=== PATIENT | male | born 1950 | race Caucasian/White ===

== ENCOUNTER 2016-08-23 10:26 | Emergency (ER) | payer OTHER ==
[2016-08-23 10:33] VITALS: BP 115/54; BMI 23.1
--- NOTE | 2016-08-23 11:29 | DR.GENAD ---
HPI - PCP Primary Care Physician: [facility] - Complaint/Symptoms Chief Complaint Doctors Comments: Patient with liver cancer was seen four days ago by his doctors ID. He presents with c/o not being able to sleep. He denies vomitng, fever or diarrhea. Chief Complaint:: PATIENT LOSSED 20 LBS IN ONE MONTH, WEAKNESS, LEFT SIDE WHEN HE LAYS ON IT HAS A SHARP PAIN SINCE SUNDAY. WAS DISCHARGED ON SUNDAY FROM HIS CHEMO SESSION. ID TOLD HIM TO COME TO THE ER. - Source History Provided: Patient - Mode of Arrival Mode of Arrival: Ambulatory - Timing Onset of Chief Complaint: 08/19/16 PMH - PMH Past Medical History: Yes Past Medical History: Hypertension Past Medical History Comment: LIVER CANCER, HEP C Past Surgical History: Yes Surgical History: CABG/Valve Surgery, Cholecystectomy - Family History History of Family Medical Conditions: No - Social History Does patient currently use any type of tobacco product: No Have you used tobacco products in the last 12 months: No Type of Tobacco Use: None Does any household member use tobacco: No Alcohol Use: None Do you use any recreational Drugs:: No Lives With: Family - infectious screening In the last 2 months have you had wt loss of >10#?: NO Have you had fever, night sweats or hemotysis?: No Have you traveled outside the country in the last 6 months?: No Isolation: Standard ROS - Review of Systems Eyes: No Symptoms Reported ENTM: No Symptoms Reported Respiratoy: No Symptoms Reported Cardiovascular: No Symptoms Reported Gastrointestinal/Abdominal: No Symptoms Reported Genitourinary: No Symptoms Reported Neurological: No Symptoms Reported Musculoskeletal: No Symptoms Reported Integumentary: No Symptoms Reported Hematologic/Lymphatic: No Symptoms Reported Endocrine: No Symptoms Reported Psychiatric: No Symptoms Reported All Other Systems: Reviewed and Negative PE - Vital Signs Vitals: Temperature 98.4 F Pulse Rate 67 Respiratory Rate 20 Blood Pressure 115/54 O2 Sat by Pulse Oximetry 97 - General Limitations: No Limitations General Appearance: Alert, In No Apparent Distress - Head Head Exam: Normal Inspection, Atraumatic - Eyes Eye exam: Normal Appearance, PERRL, EOMI - ENT ENT Exam: Normal Exam External Ear Exam: Normal External Inspection TM/Canal Exam: Bilateral Normal Nose Exam: Normal Nose Exam Mouth Exam: Normal Inspection Throat Exam: Normal Inspection - Neck Neck Exam: Normal Inspection - Chest Chest Inspection: Normal Inspection - Respiratory Respiratory Exam: Normal Lung Sounds Bilat Respiratory Exam: Bilateral Clear to Auscultation - Cardiovascular Cardiovascular Exam: Regular Rate, Normal Rhythm - Abdominal Exam Abdominal Exam: Normal Inspection, Normal Bowel Sounds Abdominal Tenderness: negative: RUQ, RLQ, LUQ, LLQ, Epigastrium, Suprapubic, Diffuse, Mild, Moderate, Severe, Other - Extremities Extremities Exam: Normal Inspection - Back Back Exam: Normal Inspection - Neurologic Neurological Exam: Alert, Oriented X3, CN II-XII Intact - Psychiatric Psychiatric Exam: Normal Affect - Skin Skin Exam: Warm, Dry, Intact - Diagnosis Discharge Problem: Insomnia Qualifiers: Insomnia type: unspecified Qualified Code(s): G47.00 - Insomnia, unspecified - Discharge Plan Condition: Stable - Follow ups/Referrals Follow ups/Referrals: Misc [Primary Care Provider] - 3 days - Instructions
== END 2016-08-23 11:40 | disposition home or self-care (01) ==
LOC: ER 10:51
DX: G47.09 Other insomnia (principal)
CPT/HCPCS: 99281; 99282

== ENCOUNTER 2019-01-29 15:02 | Observation (INO) ==
--- NOTE | 2019-01-29 16:01 | DR.CP ---
HPI Time Seen Time Seen by Provider: 01/29/19 15:57 PCP Primary Care Physician: BLAKE HPI Comment HPI Comment: PATIENT IS 68YR OLD MALE IN THE ER WITH SUDDEN ONSET OF SHARP PRECORDIAL CHEST PAIN THAT WAS 10/10 AND RADIATES TO LEFT ARM BUT RESOLVE CURRENTLY. PATIENT TOOK ASA BEFORE COMING. PAIN ASSOCIATED WITH SOB FARIBA.D WEAKNESS. NO FEVER OR COUGH OR DYSURIA. HISTORY CAD AND HTN. Complaint Chief Complaint Doctor Comments: CHEST PAIN. Chief Complaint:: PT CALLED EMS C/O CP BUT WHEN EMS ARRIVED PT HAD TAKEN ASPIRIN AND STATED HE FELT BETTER. PT AGREED TO COME TO ER FOR EVALUATION. Reviewed Nurses Notes Review: Yes Source History Provided: Patient Mode of Arrival Mode of Arrival: Ambulatory Timing Onset of Chief Complaint: 01/29/19 Came on: Suddenly Pain: Resolved Duration Duration: Since Onset Duration: Hours Location Location of Chest Pain: Left and Chest Chest Pain Radiation Location: Left Arm Context Onset: At rest and With light exertion Cardiac Risk Factors: HTN PE Risk Factors: None History of: None Prehospital Care: ASA Quality Quality: Sharp Severity Severity: Severe Modifying Factors Worsens: Exertion Impoves: Rest Associated Signs and Symptoms Associated Signs and Symptoms: Shortness of Breath Other History Other History: CAD, HTN. PMH PMH Past Medical History: Yes Past Medical History: Hypertension Past Medical History Comment: LIVER CANCER X PAST 5 YEARS Past Surgical History: Yes Surgical History: CABG/Valve Surgery Family History History of Family Medical Conditions: No Social History Does patient currently use any type of tobacco product: No Have you used tobacco products in the last 12 months: No Type of Tobacco Use: None Does any household member use tobacco: No Alcohol Use: None Do you use any recreational Drugs:: No Lives With: Spouse Lives Where: Home infectious screening In the last 2 months have you had wt loss of >10#?: NO Have you had fever, night sweats or hemotysis?: No Have you traveled outside the country in the last 6 months?: No Isolation: Standard ROS Review of Systems Constitutional: See HPI, Weakness and Fatigue; negative Fever Eyes: No Symptoms Reported and See HPI; negative Eye Pain and Blurred Vision ENTM: No Symptoms Reported and See HPI; negative Ear Pain, Nose Discharge, Nose Congestion and Throat Pain Respiratoy: See HPI and Short of Breath; negative Productive Cough and Wheezing Cardiovascular: See HPI and Chest Pain Gastrointestinal/Abdominal: No Symptoms Reported and See HPI; negative Abdominal Pain, Constipation, Diarrhea, Nausea and Vomiting Genitourinary: No Symptoms Reported and See HPI; negative Dysuria, Frequency and Hematuria Neurological: See HPI and Weakness; negative Headache and Dizziness Musculoskeletal: No Symptoms Reported and See HPI; negative Back Pain and Muscle Pain Integumentary: No Symptoms Reported and See HPI; negative Change in Color, Rash and Juandice Hematologic/Lymphatic: No Symptoms Reported and See HPI; negative Easy Bruising and Swollen Glands Endocrine: No Symptoms Reported and See HPI; negative Increased Thirst, Increased Urine and Decreased Appetite Psychiatric: No Symptoms Reported and See HPI All Other Systems: Reviewed and Negative PE Vitals Vitals: Temperature 98.6 F Pulse Rate 58 Respiratory Rate 20 Blood Pressure 147/78 O2 Sat by Pulse Oximetry 98 General Limitations: No Limitations General Appearance: Alert and In No Apparent Distress Head Head Exam: Normal Inspection and Atraumatic Eyes Eye exam: Normal Appearance, PERRL and EOMI; negative Scleral Icterus and Conjunctival Injection ENT ENT Exam: Normal Exam, Normal Oropharynx, Normal External Ear Exam and TM's Normal Bilaterally Chest Chest Inspection: Normal Inspection and Symmetric Chest Wall Rise; negative Tenderness Respiratory Respiratory Exam: Normal Lung Sounds Bilat; negative Accessory Muscle Use, Chest Wall Tenderness and Respiratory Distress Respiratory Exam: Bilateral: Rhonchi and Lower: Rhonchi Cardiovascular Cardiovascular Exam: Regular Rate, Normal Rhythm and Normal Heart Sounds; negative Systolic Murmur and Diastolic Murmur Pulse: Normal Edema: Normal Abdominal Exam Abdominal Exam: Normal Inspection, Normal Bowel Sounds and Soft; negative Tenderness Extremities Extremities Exam: Normal Inspection and Normal Capillary Refill; negative Tenderness and Calf Tenderness Back Back Exam: Normal Inspection; negative (R) CVA Tenderness and (L) CVA Tenderness Neurologic Neurological Exam: Alert, Oriented X3 and CN II-XII Intact; negative Motor Sensory Deficit Psychiatric Psychiatric Exam: Normal Affect and Normal Mood Skin Skin Exam: Warm, Dry, Intact and Normal Color MDM Differential Diagnosis Differential Diagnosis: Angina, Chest Wall Pain, CHF, Costochondritis, Myocardial Infarction, Pleuritis, Pneumonia and Pneumothorax COURSE Treatment Treatment: SEE ORDERS. Consultation Consultation Comments: DISCUSSED PATIENT WITH DR. JAVIER. HE WILL ADMIT PATIENT. Education/Counseling Education/Counseling: Patient Educated On: Diagnosis ROR Labs Reviewed Laboratory Results Reviewed?: Yes Result Diagrams: 01/30/19 04:33 01/30/19 04:33 Laboratory: WBC 9.1 X10^3/uL (3.6-10.0) 01/29/19 15:08 RBC 4.44 X10^6/uL (4.7-6.0) L 01/29/19 15:08 Hgb 14.5 g/dL (13.5-18.0) 01/29/19 15:08 Hct 42.6 % (42.0-54.0) 01/29/19 15:08 MCV 96.0 fL (80.0-100.0) 01/29/19 15:08 MCH 32.7 pg (27.0-34.0) 01/29/19 15:08 MCHC 34.1 g/dL (33.0-35.0) 01/29/19 15:08 RDW 12.7 % (11.6-16.5) 01/29/19 15:08 Plt Count 156 X10^3/uL (150.0-450.0) 01/29/19 15:08 MPV 10.1 fL (7.4-11.0) 01/29/19 15:08 Neut % (Auto) 59.1 % (42.0-75.0) 01/29/19 15:08 Lymph % (Auto) 23.4 % (21.0-51.0) 01/29/19 15:08 Ocean % (Auto) 9.9 % (0.0-13.0) 01/29/19 15:08 Eos % (Auto) 6.4 % (0.9-2.9) H 01/29/19 15:08 Baso % (Auto) 1.2 % (0.2-1.0) H 01/29/19 15:08 Neut # (Auto) 5.4 x10^3/uL (2.2-4.8) H 01/29/19 15:08 Lymph # (Auto) 2.1 X10^3/uL (1.3-2.9) 01/29/19 15:08 Ocean # (Auto) 0.9 x10^3/uL (0.3-0.8) H 01/29/19 15:08 Eos # (Auto) 0.6 x10^3/uL (0.0-0.2) H 01/29/19 15:08 Baso # (Auto) 0.1 X10^3/uL (0.0-0.1) 01/29/19 15:08 Absolute Nucleated RBC 0.1 /100WBC 01/29/19 15:08 D-Dimer 178 ng/mL (0-400) 01/29/19 15:08 Sodium 140 mmol/L (136-145) 01/29/19 15:08 Corrected Sodium 140 mmol/L (136-145) 01/29/19 15:08 Potassium 4.8 mmol/L (3.5-5.1) 01/29/19 15:08 Chloride 103 mmol/L (98-107) 01/29/19 15:08 Carbon Dioxide 25.1 mmol/L (21-32) 01/29/19 15:08 BUN 17 mg/dL (7-18) 01/29/19 15:08 Creatinine 0.78 mg/dL (0.70-1.30) 01/29/19 15:08 Est GFR (MDRD) Af Amer > 60 (>60) 01/29/19 15:08 Est GFR (MDRD) Non-Af > 60 (>60) 01/29/19 15:08 Glucose 113 mg/dL (65-99) H 01/29/19 15:08 Calcium 9.2 mg/dL (8.5-10.1) 01/29/19 15:08 Corrected Calcium TNP 01/29/19 15:08 Total Bilirubin 0.60 mg/dL (0.2-1.0) 01/29/19 15:08 AST 24 Units/L (15-37) 01/29/19 15:08 ALT 19 Units/L (12-78) 01/29/19 15:08 Alkaline Phosphatase 71 Units/L (46-116) 01/29/19 15:08 Creatine Kinase 88 Units/L (39-308) 01/29/19 15:08 CK-MB (CK-2) 1.0 ng/mL (0-4.0) 01/29/19 15:08 CK/CKMB % Calc 1.1 % (<4) 01/29/19 15:08 Troponin I < 0.02 ng/mL (0-1.5) 01/29/19 15:08 Total Protein 7.5 g/dL (6.4-8.2) 01/29/19 15:08 Albumin 4.0 g/dL (3.4-5.0) 01/29/19 15:08 Globulin 3.5 g/dL (2.5-4.5) 01/29/19 15:08 Albumin/Globulin Ratio 1.1 Ratio (1.1-2.1) 01/29/19 15:08 XRAY XRAY Interpreted by: Radiologist XRAY Findings: REPORT NOTED AND DISCUSSED WITH PATIENT. EKG [place]: Normal Rhythm: NSR Block: None Hypertrophy: None ST: Nonsp Opioid Opioid Risk Tool Age (Edy box if 16-45): No Total: 0 Total Score Risk Category: Low Risk Copyright: [employer]der[employer] LR predicting aberrant behaviors Diagnosis Discharge Problem: Chest pain Qualifiers: Chest pain type: precordial pain Qualified Code(s): R07.2 - Precordial pain CAD (coronary artery disease) Qualifiers: Coronary Disease-Associated Artery/Lesion type: [place] artery [place] vs. transplanted heart: king salmon heart Associated angina: angina presence unspecified Qualified Code(s): I25.10 - Atherosclerotic heart disease of [place] coronary artery without angina pectoris Instructions Instructions: Nonspecific Chest Pain, Wyjx-ju-Yokm Steps to Quit Smoking, Irrp-et-Vagn Stroke Prevention, Bwyp-gz-Rcoc Hypertension, Bztb-qx-Mbjg Forms: Patient Portal
[2019-01-29 16:09] LABS: BASOPHILS # (AUTO) 0.1 X10^3/uL (0.0-0.1); BASOPHILS % (AUTO) 1.2 % (0.2-1.0); EOSINOPHILS # (AUTO) 0.6 x10^3/uL (0.0-0.2); EOSINOPHILS % (AUTO) 6.4 % (0.9-2.9); HEMATOCRIT 42.6 % (42.0-54.0); HEMOGLOBIN 14.5 g/dL (13.5-18.0); LYMPHOCYTES # (AUTO) 2.1 X10^3/uL (1.3-2.9); LYMPHOCYTES % (AUTO) 23.4 % (21.0-51.0); MEAN CORPUSCULAR HEMOGLOBIN 32.7 pg (27.0-34.0); MEAN CORPUSCULAR HGB CONC 34.1 g/dL (33.0-35.0); MEAN PLATELET VOLUME 10.1 fL (7.4-11.0); MONOCYTES # (AUTO) 0.9 x10^3/uL (0.3-0.8); MONOCYTES % (AUTO) 9.9 % (0.0-13.0); NEUTROPHILS # (AUTO) 5.4 x10^3/uL (2.2-4.8); NEUTROPHILS % (AUTO) 59.1 % (42.0-75.0); PLATELET COUNT 156 X10^3/uL (150.0-450.0); RED BLOOD COUNT 4.44 X10^6/uL (4.7-6.0); RED CELL DISTRIBUTION WIDTH 12.7 % (11.6-16.5); WHITE BLOOD COUNT 9.1 X10^3/uL (3.6-10.0)
[2019-01-29 16:22] LABS: BLOOD UREA NITROGEN 17 mg/dL (7-18); CALCIUM 9.2 mg/dL (8.5-10.1); CARBON DIOXIDE 25.1 mmol/L (21-32); CHLORIDE 103 mmol/L (98-107); COR NA(FOR HYPERGLY) 140 mmol/L (136-145); CREATININE 0.78 mg/dL (0.70-1.30); SODIUM 140 mmol/L (136-145); TROPONIN I < 0.02 ng/mL (0-1.5); eGFR NON BLACK RACES > 60 (>60)
[2019-01-29 16:26] LABS: ALANINE AMINOTRANSFERASE 19 Units/L (12-78); ALKALINE PHOSPHATASE 71 Units/L (46-116); ASPARTATE AMINO TRANSFERASE 24 Units/L (15-37); CKMB % 1.1 % (<4); CREATINE KINASE 88 Units/L (39-308); TOTAL PROTEIN 7.5 g/dL (6.4-8.2)
--- NOTE | 2019-01-29 16:34 | RAD ---
CHEST RADIOGRAPH SINGLE FRONTAL VIEWCLINICAL HISTORY: ACUTE CHEST PAIN THIS P.MCOMPARISON: None.FINDINGS: Prior median sternotomy for CABG. The trachea is midline. Cardiopericadial silhouette is enlarged with prominent perihilar lung markings and interstitium. There is no focal consolidation, pleural effusion or pneumothorax . The lungs are well inflated . Pulmonary vascularity is normal . Imaged osseous structures are intact . Soft tissues are unremarkable .IMPRESSION:Chronic cardiomegaly with findings consistent with COPD.Electronically signed by: JARED SHORT (Jan 29, 2019 16:33:12)
[2019-01-29] MEDS ORDERED: NS 1000 ML 1,000 ML IV SCH (20:00)
[2019-01-29] MEDS: PEPCID 20 MG IV PREMIX* 20 MG/50 ML BAG IV SCH ×2 (20:39→21:13)
[2019-01-29 21:30] VITALS: BMI 24.3
[2019-01-29] MEDS: NICOTINE PATCH TD SCH (22:02)
[2019-01-29 23:27] LABS: CKMB % 1.6 % (<4); CREATINE KINASE 62 Units/L (39-308); CREATINE KINASE MB < 1.0 ng/mL (0-4.0); TROPONIN I < 0.02 ng/mL (0-1.5)
[2019-01-29] MEDS ORDERED: TYLENOL 325 MG TAB PO PRN (23:49)
[2019-01-30 05:05] LABS: BILIRUBIN,URINE NEGATIVE (NEGATIVE); BLOOD/HEMOGLOBIN,URINE 1+ (NEGATIVE); GLUCOSE, URINE NEGATIVE (NEGATIVE); KETONES,URINE NEGATIVE (NEGATIVE); LEUKOCYTE ESTERASE ,URINE NEGATIVE (NEGATIVE); NITRITES,URINE NEGATIVE (NEGATIVE); PROTEIN,URINE NEGATIVE (NEGATIVE); UROBILINOGEN,URINE NORMAL (NORMAL)
[2019-01-30 05:14] LABS: BASOPHILS # (AUTO) 0.1 X10^3/uL (0.0-0.1); EOSINOPHILS # (AUTO) 0.6 x10^3/uL (0.0-0.2); HEMATOCRIT 39.2 % (42.0-54.0); HEMOGLOBIN 13.2 g/dL (13.5-18.0); LYMPHOCYTES % (AUTO) 31.1 % (21.0-51.0); MEAN CORPUSCULAR HEMOGLOBIN 32.4 pg (27.0-34.0); MEAN CORPUSCULAR HGB CONC 33.7 g/dL (33.0-35.0); MEAN CORPUSCULAR VOLUME 96.2 fL (80.0-100.0); MEAN PLATELET VOLUME 10.5 fL (7.4-11.0); MONOCYTES % (AUTO) 10.7 % (0.0-13.0); NEUTROPHILS % (AUTO) 51.2 % (42.0-75.0); PLATELET COUNT 142 X10^3/uL (150.0-450.0); RED BLOOD COUNT 4.08 X10^6/uL (4.7-6.0); RED CELL DISTRIBUTION WIDTH 12.7 % (11.6-16.5); WHITE BLOOD COUNT 9.8 X10^3/uL (3.6-10.0)
[2019-01-30 05:16] LABS: APPEARANCE,URINE CLEAR (CLEAR); BACTERIA,URINE NEGATIVE /HPF (NEGATIVE); COLOR,URINE YELLOW (YELLOW); RBC,URINE 0-2 /HPF (0-3); SQUAMOUS EPITHELIAL CELL,UR FEW /HPF (NEGATIVE)
[2019-01-30 05:17] LABS: MUCUS,URINE FEW /HPF (NEGATIVE)
[2019-01-30 05:44] LABS: ALANINE AMINOTRANSFERASE 11 Units/L (12-78); ALBUMIN 3.3 g/dL (3.4-5.0); ALKALINE PHOSPHATASE 61 Units/L (46-116); ASPARTATE AMINO TRANSFERASE 14 Units/L (15-37); BLOOD UREA NITROGEN 17 mg/dL (7-18); CALCIUM 8.5 mg/dL (8.5-10.1); CARBON DIOXIDE 27.9 mmol/L (21-32); CHLORIDE 108 mmol/L (98-107); CHOL/HDL RATIO 3.4 (0.0-5.0); CHOLESTEROL 129 mg/dL (0-200); CKMB % 1.7 % (<4); COR CA(FOR HYPOALB) 9.1 mg/dL (8.5-10.1); CREATINE KINASE 58 Units/L (39-308); CREATINE KINASE MB < 1.0 ng/mL (0-4.0); CREATININE 0.98 mg/dL (0.70-1.30); HDL CHOLESTEROL 38 mg/dL (40-60); MAGNESIUM 1.7 mg/dL (1.7-2.9); SODIUM 142 mmol/L (136-145); TOTAL PROTEIN 6.7 g/dL (6.4-8.2); TRIGLYCERIDES 92 mg/dL (0-150); TROPONIN I < 0.02 ng/mL (0-1.5); eGFR NON BLACK RACES > 60 (>60)
[2019-01-30] MEDS ORDERED: POTASSIUM CHLORIDE LIQ 20 MEQ UDC PO PRN (06:06)
[2019-01-30] MEDS ORDERED: K-RIDER 10 MEQ/NS 100 ML 10 MEQ/100 ML BAG IV PRN (06:06)
[2019-01-30] MEDS ORDERED: KLOR-CON PO PRN (06:06)
[2019-01-30] MEDS ORDERED: K-DUR TAB 20 MEQ PO PRN (06:06)
[2019-01-30] MEDS ORDERED: MICRO K EXTEN CAP 10 MEQ PO PRN (06:06)
[2019-01-30] MEDS ORDERED: POTASSIUM CHL 60 MEQ/NS 0.45% 500 ML IV PRN (06:06)
[2019-01-30] MEDS ORDERED: POTASSIUM CHL 40 MEQ/NS 0.45% 500 ML IV PRN (06:06)
[2019-01-30] MEDS: MAGNESIUM SULFATE 1 GRAM/100 mL PREMIX 1 GM/100 ML BAG IV PRN ×2 (06:38→11:04)
[2019-01-30] MEDS: PEPCID 20 MG IV PREMIX* 20 MG/50 ML BAG IV SCH (09:13)
[2019-01-30] MEDS: NICOTINE PATCH TD SCH (09:14)
[2019-01-30 13:27] VITALS: BP 145/68
--- NOTE | 2019-02-09 20:08 | DR.CARTERS ---
Short Stay Summary - Admission Date Date of Admission: 01/29/19 - Discharge Date Discharge Date: 01/30/19 - Admission Diagnoses (1) Chest pain, rule out acute myocardial infarction Status: Acute - Hospital Course Hospital Course: IS A 68 YEAR OLD PATIENT OF THE [facility] WHO PRESENTED TO THE ER WITH COMPLAINTS OF CHEST PAIN. HE REPORTED THAT SYMPTOMS STARTED SUDDENLY WAND W CHARACTERIZED SHART, 10/, AND RADIATED TO THE LEFT ARM. PAIN RESOLVED AFTER TAKING ASPIRIN. ASSOCIATED SYMPTOMS INCLUDED SHORTNESS OF BREATH AND WEAKNESS. HE HAS A HISTORY OF CAD, HTN, LIVER CA, AND A CABG. ON ARRIVAL, VITALS WERE 98.6-58-20-98%-147/78. LABS WERE OBTAINED. ABNORMAL LAB VALUES INCLUDED THE FOLLOWING: RBC 4.44, GLUCOSE 113. CARDIAC ENZYMES WERE WITHIN NORMAL LIMITS. EKG REVEALED: SINUS RHYTHM WITH HR 59. CHEST XRAY REVEALED: CHRONIC CARDIOMEGALY WITH FINDINGS CONSISTENT WITH COPD. HE WAS ADMITTED TO THE HOSPITAL FOR FURTHER EVALUATION AND TREATMENT OF CHEST PAIN RULE OUT ACUTE CT. HE WAS STARTED ON NORMAL SALINE AT KVO, PEPCID 20MG IV Q12H, A NICOTINE PATCH, TYLENOL 650MG PO Q4H PRN. WE PLANNED TO OBTAIN SERIAL CARDIAC ENZYMES AND EKGS AND CONTINUE TO MONITOR. ON THE MORNING FOLLOWING ADMISSION, PATIENT IS ALERT AND ORIENTED, LYING IN BED ON MORNING ROUNDS. HE DENIES CHEST PAIN, SOB, OR OTHER COMPLAINTS. ON EXAMINATION, HEART IS REGULAR IN RATE AND RHYTHM. BILATERAL LUNGS ARE CLEAR TO AUSCULTATION. ABDOMEN IS ROUND, SOFT, AND NON-TENDER WITH NORMAL BOWEL SOUNDS NOTED IN ALL QUADRANTS. HIS VITALS THIS MORNING ARE: 98.2-63-20-95%-147/67. LABS WERE OBTAINED. HE IS HEMODYNAMICALLY STABLE WITH NO CHANGES NOTED TO EKGS. CARDIAC ENZYMES NORMAL. AN ECHO WAS OBTAINED AND REVEALED AN EJECTION FRACTION OF 52%. WE PLANNED FOR DISCHARGE. INSTRUCTIONS FOR MEDICATIONS AND FOLLOW UP WERE DISCUSSED WITH PATIENT AND FAMILY. THEY VERBALIZED UNDERSTANDING OF ALL ORDERS. HE WAS DISCHARGED HOME WITH FAMILY IN STABLE CONDITION WITH INSTRUCTIONS TO CONTINUE CURRENT MEDICATIONS AND FOLLOW UP WITH HIS PCP IN ONE WEEK. - Discharge Medications Discharge Medications: Home Medication List carvedilol 6.25 mg PO BID 01/29/19 [History] fluticasone propionate 2 spray INTRANASAL DAILY 01/29/19 [History] pantoprazole 40 mg PO DAILY 01/29/19 [History] Prescriptions: Risks, benefits, and alternatives of opioids discussed: Yes Prescription drug monitoring program results: PDMP was not reviewed - Discharge Plan Disposition: 01 HOME, SELF-CARE Condition: Stable - Follow up/Referrals Follow up/Referrals: NFD,None [Primary Care Provider] - 1 WEEK ([facility] - Instructions Instructions: Nonspecific Chest Pain, Jfbr-fp-Pqhh, Steps to Quit Smoking, Jire-jm-Ugta, Stroke Prevention, Vvhu-ej-Cpzv, Hypertension, Dyno-iy-Pxns Additional Instructions: DIET TOLERATED. ACTIVITY TOLERATED. Forms: Patient Portal
== END 2019-01-30 12:50 | disposition home or self-care (01) ==
LOC: MED/SURG 15:02 → ER 15:02 → MED/SURG 19:51
PROVIDERS: ADMIT Internal Medicine; ATTEND Internal Medicine
CPT/HCPCS: 36415; 71010; 71045; 80053; 80061; 81001; 82550; 82553; 83735; 84484; 85025; 85378; 93005; 93306; 94760; 96365; 96367; 99284; A4222; S0028; G0378; J3475; J3490; J7030

== ENCOUNTER 2024-09-19 12:52 | Inpatient (IN) ==
--- NOTE | 2024-09-19 13:13 | EKG ---
Test Reason : a fib Blood Pressure : */* mmHG Vent. Rate : 126 BPM Atrial Rate : * BPM P-R Int : * ms QRS Dur : 80 ms QT Int : 316 ms P-R-T Axes : * -31 55 degrees QTc Int : 457 ms Atrial fibrillation with rapid ventricular response Left axis deviation Minimal voltage criteria for LVH, may be normal variant ( R in aVL ) Possible Anterior infarct , age undetermined Abnormal ECG When compared with ECG of 16-JUN-2024 13:45, No significant change was found Confirmed by Markus Aranda MD ([id number]) on 09/20/2024 8:47:15 AM Referred By: Confirmed By: Markus Aranda MD
--- NOTE | 2024-09-19 13:32 | DR.CP ---
HPI Time Seen Time Seen by Provider: 09/19/24 13:30 PCP Primary Care Physician: Dr. Huston- [facility] Complaint Chief Complaint Doctor Comments: Patient arrived today with A-fib with RVR. He was seen by his hotel maintenance worker in [place] today he had A-fib with RVR his hotel maintenance worker called in the prescription for metoprolol to the pharmacy and told him he needs to be go to the hospital to be further evaluated. The patient was next-door to [facility] [place] [facility] Did not go there he can take her abdomen for further evaluation. He was not having any symptoms when he got here he has no chest pain no shortness of breath he just stated that he just been feeling weak over the last week or so and he has had some headache. Chief Complaint:: Pt c/o one month of generalized fatigue. Pt states that he has a history of afib and for the past month his heartrate has consistently been between 115-140 at home. Pt denies any shortness of breath or chest pain. COVID-19 Coronavirus risk:travel/contact w/high risk person: No Has patient experienced Coronavirus symptoms: No Source History Provided: Patient Mode of Arrival Mode of Arrival: Ambulatory Timing Onset of Chief Complaint: 09/19/24 Associated Signs and Symptoms Associated Signs and Symptoms: None PMH PMH Past Medical History: Yes Past Medical History: Coronary Artery Disease, Dyslipidemia, GERD, Hypertension and [place] Past Medical History Comment: Afib Past Surgical History: Yes Surgical History: Angioplasty/Stents and CABG/Valve Surgery Past Surgical History Comment: watchman, back surgery x 3, neck surgery, left leg surgery Family History History of Family Medical Conditions: Yes Family Medical History: [place], Coronary Artery Disease, Sudden Cardiac and Hypertension Social History Does patient currently use any type of tobacco product: No Have you used tobacco products in the last 12 months: No Type of Tobacco Use: None Does any household member use tobacco: No Alcohol Use: None Do you use any recreational Drugs:: No Lives With: Spouse Lives Where: Home Travel Risk Coronavirus risk:travel/contact w/high risk person: No Has patient experienced Coronavirus symptoms: No Infectious screening In the last 2 months have you had wt loss of >10#?: NO Have you had fever, night sweats or hemotysis?: No Have you traveled outside the country in the last 6 months?: No Isolation: Standard ROS Review of Systems Constitutional: Other (afib with rvr) Eyes: No Symptoms Reported ENTM: No Symptoms Reported Respiratoy: No Symptoms Reported Cardiovascular: No Symptoms Reported Gastrointestinal/Abdominal: No Symptoms Reported Genitourinary: No Symptoms Reported Neurological: Weakness Musculoskeletal: No Symptoms Reported Integumentary: No Symptoms Reported Hematologic/Lymphatic: No Symptoms Reported Endocrine: No Symptoms Reported Psychiatric: No Symptoms Reported All Other Systems: Reviewed and Negative PE Vitals Vitals: Vital Signs Pulse Rate 108 Pulse Rate 76 Pulse Rate 83 Pulse Rate 115 Pulse Rate 124 Pulse Rate 128 Pulse Rate 126 Pulse Rate 124 Pulse Rate 118 Pulse Rate 117 Pulse Rate 121 Pulse Rate 118 Pulse Rate 123 Pulse Rate 85 Pulse Rate 123 Pulse Rate 117 Pulse Rate 113 Pulse Rate 117 Pulse Rate 121 Pulse Rate 123 Pulse Rate 115 Pulse Rate 128 Pulse Rate 131 Pulse Rate 131 Pulse Rate 126 Pulse Rate 127 Pulse Rate 119 Pulse Rate 128 Pulse Rate 121 Pulse Rate 121 Pulse Rate 121 Pulse Rate 123 Pulse Rate 126 Pulse Rate 128 Pulse Rate 128 Pulse Rate 129 Pulse Rate 130 Pulse Rate 128 Respiratory Rate 26 Respiratory Rate 24 Respiratory Rate 27 Respiratory Rate 24 Respiratory Rate 26 Respiratory Rate 25 Respiratory Rate 21 Respiratory Rate 32 Respiratory Rate 22 Respiratory Rate 36 Respiratory Rate 21 Respiratory Rate 35 Respiratory Rate 30 Respiratory Rate 23 Respiratory Rate 21 Respiratory Rate 20 Respiratory Rate 21 Respiratory Rate 25 Respiratory Rate 33 Respiratory Rate 22 Respiratory Rate 18 Respiratory Rate 28 Respiratory Rate 21 Respiratory Rate 19 Respiratory Rate 20 Respiratory Rate 18 Respiratory Rate 19 Respiratory Rate 21 Respiratory Rate 22 Respiratory Rate 27 Respiratory Rate 11 Respiratory Rate 16 Respiratory Rate 19 Respiratory Rate 23 Respiratory Rate 34 Respiratory Rate 20 Respiratory Rate 19 Blood Pressure 90/55 Blood Pressure 94/45 Blood Pressure 93/55 Blood Pressure 97/55 Blood Pressure 98/56 Blood Pressure 109/58 Blood Pressure 114/74 Blood Pressure 108/67 Blood Pressure 115/58 Blood Pressure 127/64 Blood Pressure 147/63 Blood Pressure 128/61 Blood Pressure 136/80 Blood Pressure 118/78 Blood Pressure 108/70 Blood Pressure 95/51 Blood Pressure 103/48 Blood Pressure 99/55 Blood Pressure 99/62 Blood Pressure 115/82 Blood Pressure 125/79 Blood Pressure 127/76 Blood Pressure 135/86 Blood Pressure 135/86 Blood Pressure 131/84 Blood Pressure 127/85 Blood Pressure 126/85 Blood Pressure 127/83 Blood Pressure 115/76 Blood Pressure 113/79 Blood Pressure 109/74 Blood Pressure 127/80 Blood Pressure 127/80 Blood Pressure 127/80 Blood Pressure 128/83 Blood Pressure 128/83 O2 Sat by Pulse Oximetry 97 O2 Sat by Pulse Oximetry 97 O2 Sat by Pulse Oximetry 96 O2 Sat by Pulse Oximetry 94 O2 Sat by Pulse Oximetry 96 O2 Sat by Pulse Oximetry 95 O2 Sat by Pulse Oximetry 88 O2 Sat by Pulse Oximetry 97 O2 Sat by Pulse Oximetry 98 O2 Sat by Pulse Oximetry 93 O2 Sat by Pulse Oximetry 96 O2 Sat by Pulse Oximetry 97 O2 Sat by Pulse Oximetry 97 O2 Sat by Pulse Oximetry 98 O2 Sat by Pulse Oximetry 98 O2 Sat by Pulse Oximetry 97 O2 Sat by Pulse Oximetry 97 O2 Sat by Pulse Oximetry 98 O2 Sat by Pulse Oximetry 92 O2 Sat by Pulse Oximetry 96 O2 Sat by Pulse Oximetry 97 O2 Sat by Pulse Oximetry 96 O2 Sat by Pulse Oximetry 98 O2 Sat by Pulse Oximetry 98 O2 Sat by Pulse Oximetry 97 O2 Sat by Pulse Oximetry 100 O2 Sat by Pulse Oximetry 99 O2 Sat by Pulse Oximetry 99 O2 Sat by Pulse Oximetry 99 O2 Sat by Pulse Oximetry 99 O2 Sat by Pulse Oximetry 99 O2 Sat by Pulse Oximetry 98 O2 Sat by Pulse Oximetry 100 General Limitations: No Limitations General Appearance: In No Apparent Distress Head Head Exam: Normal Inspection, Atraumatic and Normocephalic Eyes Eye exam: Normal Appearance, PERRL and EOMI ENT ENT Exam: Normal Exam, Normal Oropharynx and Normal External Ear Exam Chest Chest Inspection: Normal Inspection and Symmetric Chest Wall Rise Respiratory Respiratory Exam: Normal Lung Sounds Bilat Respiratory Exam: Bilateral: Clear to Auscultation Cardiovascular Cardiovascular Exam: Other (afib with rvr) Abdominal Exam Abdominal Exam: Normal Inspection Extremities Extremities Exam: Normal Inspection and Full ROM Back Back Exam: Normal Inspection Neurologic Neurological Exam: Alert and Oriented X3 Psychiatric Psychiatric Exam: Normal Affect and Normal Mood Skin Skin Exam: Warm, Dry and Intact MDM Additional Information Findings: afib with rvr Differential Diagnosis Differential Diagnosis: Angina (afib with rvr) COURSE Treatment Treatment: Patient remained relatively stable during ER evaluation. We did initially gave her an metoprolol a total of 10 mg IV with the heart rate still remaining in the 120s to 130s. The patient was later later given Cardizem initially 10 mg IV and started on a Cardizem drip and the heart rate still remained in the 120s to 130s range. The patient was given 1 dose of digoxin 0.125 mg IV and the heart rate fluctuated between 70 and 130. Patient never complained of chest pain during this process and the cardiac enzymes x 2 were normal. Patient did not complain of any chest pain during this ER evaluation and the cardiac enzymes were normal troponin was 10 and 1 was 9.1. Patient had a CBC that was normal had a complete metabolic panel that was normal also the patient had chest x-ray was negative for infiltrate this patient did get only up to having a Cardizem drip of 15 mg/h and the heart rate still fluctuating between 90 and 120. I did present this patient to Dr. Callahan 2129 he stated the patient could be referred to them for observation for A-fib with RVR. They did call the case management and they said the patient could be referred to observation for further treatment. I spoke with Dr. Callahan and I told him that we would continue with the Cardizem at 15 mg/h for now. The patient was made aware of the intent to refer him to observation here and was agreeable to the observation admission. ROR Labs Reviewed Laboratory Results Reviewed?: Yes 09/19/24 13:22 09/19/24 13:22 Laboratory: WBC 11.7 X10^3/uL (3.6-10.0) H 09/19/24 13:22 RBC 4.29 X10^6/uL (4.7-6.0) L 09/19/24 13:22 Hgb 13.4 g/dL (13.5-18.0) L 09/19/24 13:22 Hct 40.5 % (42.0-54.0) L 09/19/24 13:22 MCV 94.4 fL (80.0-100.0) 09/19/24 13:22 MCH 31.3 pg (27.0-34.0) 09/19/24 13:22 MCHC 33.1 g/dL (33.0-35.0) 09/19/24 13:22 RDW 14.2 % (11.6-16.5) 09/19/24 13:22 Plt Count 207 X10^3/uL (150.0-450.0) 09/19/24 13:22 MPV 9.0 fL (7.4-11.0) 09/19/24 13:22 Neut % (Auto) 62.7 % (42.0-75.0) 09/19/24 13:22 Lymph % (Auto) 26.4 % (21.0-51.0) 09/19/24 13:22 [place] % (Auto) 9.4 % (0.0-13.0) 09/19/24 13:22 Eos % (Auto) 0.6 % (0.9-2.9) L 09/19/24 13:22 Baso % (Auto) 0.9 % (0.2-1.0) 09/19/24 13:22 Neut # (Auto) 7.3 x10^3/uL (2.2-4.8) H 09/19/24 13:22 Lymph # (Auto) 3.1 X10^3/uL (1.3-2.9) H 09/19/24 13:22 [place] # (Auto) 1.1 x10^3/uL (0.3-0.8) H 09/19/24 13:22 Eos # (Auto) 0.1 x10^3/uL (0.0-0.2) 09/19/24 13:22 Baso # (Auto) 0.1 X10^3/uL (0.0-0.1) 09/19/24 13:22 Absolute Nucleated RBC 0.1 /100WBC 09/19/24 13:22 PT 13.8 SECONDS (11.8-14.3) 09/19/24 13:22 INR Target Range - 09/19/24 13:22 INR 1.04 (0.8-1.3) 09/19/24 13:22 APTT 27.6 SECONDS (22.9-36.5) 09/19/24 13:22 PTT Comment - 09/19/24 13:22 Sodium 136 mmol/L (136-145) 09/19/24 13:22 Corrected Sodium TNP 09/19/24 13:22 Potassium 4.2 mmol/L (3.5-5.1) 09/19/24 13:22 Chloride 101 mmol/L (98-107) 09/19/24 13:22 Carbon Dioxide 27.7 mmol/L (21-32) 09/19/24 13:22 BUN 14 mg/dL (7-18) 09/19/24 13:22 Creatinine 0.82 mg/dL (0.70-1.30) 09/19/24 13:22 Est GFR (MDRD) Af Amer > 60 (>60) 09/19/24 13:22 Est GFR (MDRD) Non-Af > 60 (>60) 09/19/24 13:22 Glucose 106 mg/dL (65-99) H 09/19/24 13:22 Calcium 8.9 mg/dL (8.5-10.1) 09/19/24 13:22 Corrected Calcium TNP 09/19/24 13:22 Total Bilirubin 0.80 mg/dL (0.2-1.0) 09/19/24 13:22 AST 20 Units/L (15-37) 09/19/24 13:22 ALT 21 Units/L (12-78) 09/19/24 13:22 Alkaline Phosphatase 91 Units/L (46-116) 09/19/24 13:22 Creatine Kinase 27 Units/L (39-308) L 09/19/24 13:22 Troponin I High Sens 9.1 ng/L (4.0-60.0) 09/19/24 15:37 Total Protein 8.4 g/dL (6.4-8.2) H 09/19/24 13:22 Albumin 3.9 g/dL (3.4-5.0) 09/19/24 13:22 Globulin 4.5 g/dL (2.5-4.5) 09/19/24 13:22 Albumin/Globulin Ratio 0.9 Ratio (1.1-2.1) L 09/19/24 13:22 Opioid Opioid Risk Tool Age (Edy box if 16-45): No History of Preadolescent Sexual Abuse: No Total: 0 Total Score Risk Category: Low Risk Copyright: Andrey VILLARREAL predicting aberrant behaviors Discharge Plan Diagnosis Discharge Problem: Atrial fibrillation with rapid ventricular response Discharge Plan Patient Disposition: 09 ADMITTED INPATIENT Condition: Stable Prescriptions: No Action folic acid 1 mg tablet 1 mg PO QDAY Centrum Ultra Men's 8 mg iron- 200 mcg-600 mcg tablet 1 tab PO DAILY amlodipine 5 mg tablet 5 mg PO DAILY sucralfate 1 gram tablet 1 g PO BID Qty: 60 0RF atorvastatin 40 MG tablet 40 mg PO DAILY pantoprazole 40 mg Tablet,Delayed Release (Dr/Ec) 40 mg PO DAILY sotalol 80 mg Tablet 40 mg PO BID clopidogrel 75 mg Tablet 75 mg PO QDAY losartan 50 mg Tablet 50 mg PO BID calcium polycarbophil [Fiber (calcium polycarbophil)] 625 mg Tablet 625 mg PO DAILY metoprolol tartrate 25 mg Tablet 25 mg PO BID Health Concerns: Post Hospitalization: new medications and changes needed to prevent readmission or further decline. Pt educated and given instructions on all concerns. Plan of Treatment: Continue with present treatment and follow up plan. Pt is to keep follow up appointment as instructed and take medications as ordered. Orders to Discharge Patient Discharge Orders: Transfer (Routine); Ordered 09/19/24 Ordered By: Adilson Valderrama Follow ups/Referrals Follow ups/Referrals: ,Misc [Primary Care Provider] - 3 days Instructions Stand Alone Forms: Find Help Web Site, Post Hospital Follow Up Care Print Language: PERSIAN
[2024-09-19 13:34] LABS: MEAN PLATELET VOLUME 9.0 fL (7.4-11.0); RED CELL DISTRIBUTION WIDTH 14.2 % (11.6-16.5)
[2024-09-19 13:44] LABS: CREATININE 0.82 mg/dL (0.70-1.30); INR 1.04 (0.8-1.3); eGFR NON BLACK RACES > 60 (>60)
[2024-09-19] MEDS: LOPRESSOR INJ 5 MG AMP IVP ONE (13:46)
[2024-09-19] MEDS: CARDIZEM INJ 50 MG VIAL IVP ONE (14:44)
[2024-09-19] MEDS: CARDIZEM INJ 125 MG VIAL 125 MG in NS 100 ML IV 100 ML IV PRN (15:38)
[2024-09-19] MEDS: LANOXIN INJ IVP SCH (18:00)
--- NOTE | 2024-09-19 18:45 | RAD ---
EXAM: CHEST, 1 VIEW HISTORY: afib; COMPARISON: 06/16/2024 br.br.br.br unremarkable . The lungs are clear without focal infiltrate or effusion. The bony thorax is unremarkable. IMPRESSION: No acute cardiopulmonary disease. THIS IS AN ELECTRONICALLY VERIFIED FINAL REPORT 09/19/2024 6:34 PM - Electronically signed by Gary Clay MD
[2024-09-20 00:24] VITALS: BMI 38.7
[2024-09-20 05:29] LABS: MEAN PLATELET VOLUME 9.3 fL (7.4-11.0); RED CELL DISTRIBUTION WIDTH 13.7 % (11.6-16.5)
[2024-09-20 05:33] LABS: COR CA(FOR HYPOALB) 9.3 mg/dL (8.5-10.1); COR NA(FOR HYPERGLY) 141 mmol/L (136-145); CREATININE 0.64 mg/dL (0.70-1.30); eGFR NON BLACK RACES > 60 (>60)
[2024-09-20] MEDS: FOLIC ACID TAB 1 MG PO SCH (09:48)
[2024-09-20] MEDS: PLAVIX PO SCH (09:48)
[2024-09-20] MEDS: TAB-A-VITE PO SCH (09:48)
[2024-09-20] MEDS: PROTONIX TAB 40 MG PO SCH (09:49)
[2024-09-20] MEDS: CARAFATE PO SCH (09:49)
[2024-09-20] MEDS: LIPITOR TAB 40 MG PO SCH (09:49)
[2024-09-20] MEDS: BETAPACE AF PO SCH (09:49)
[2024-09-20] MEDS: CARDIZEM INJ 50 MG VIAL ONE (10:21)
--- NOTE | 2024-09-20 12:09 | DR.H&P ---
H&P History & Physical for Day of: H&P Date: 09/19/24 Chief Complaint Chief Complaint: "NEWS ASSIGNMENT EDITOR TOLD ME TO COME TO ER" "AFIB" History of Present Illness History of Present Illness: Patient is a 74 WM, ER admission after he arrived today with A-fib with RVR. He was seen by his computer operations technician in [place] today he had A-fib with RVR his computer operations technician called in the prescription for metoprolol to the pharmacy and told him he needs to be go to the hospital to be further evaluated. The patient reported he was next-door to [facility], did not go there. He was not having any symptoms when he got here he has no chest pain no shortness of breath he just stated that he just been feeling weak over the last week or so and he has had some headache. Pt also reports he had recently, within the past 2 weeks had a "respiratory virus" and was on antibiotics and cold medication prescribed by a walk-in clinic. Pt reports ccc improved but weakness continued. Past Medical History Past Medical History: Coronary Artery Disease, Dyslipidemia, GERD, Hypertension and [place] Past Surgical History Surgical History: Angioplasty/Stents, Appendectomy and Cholecystectomy Family History Family Medical History: [place], Coronary Artery Disease, Sudden Cardiac and Hypertension Social History Does patient currently use any type of tobacco product: Yes Have you used tobacco products in the last 12 months: No Type of Tobacco Use: Cigarettes Does any household member use tobacco: Yes Alcohol Use: None Drug Use: None Medications Home Medications: Home Medications Medication Instructions Recorded Confirmed Type atorvastatin 40 mg tablet 40 mg PO DAILY 08/23/1609/05 History pantoprazole 40 mg tablet,delayed 40 mg PO DAILY 01/2909/19/24 History release folic acid 1 mg tablet 1 mg PO QDAY 03/24/22 History multivit,Ca,min-iron 8 mg-folic 1 tab PO DAILY 3 09/19/24 History acid 200 mcg-lycopene 600 mcg tablet (Centrum Ultra Men's) amlodipine 5 mg tablet 5 mg PO DAILY 05/09/2309/19 History clopidogrel 75 mg tablet 75 mg PO QDAY 06/16/2409/19 History sotalol 80 mg tablet 40 mg PO BID 06/16/24 History calcium polycarbophil 625 mg 625 mg PO DAILY 09/19/24 09/19/24 History tablet (Fiber (calcium polycarbophil)) losartan 50 mg tablet 50 mg PO BID 09/19/24 History metoprolol tartrate 25 mg tablet 25 mg PO BID 09/19/24 09/19/24 History Allergies Allergies Allergy/AdvReac Type Severity Reaction Status Date / Time hydrocodone Allergy Mild NAUSEA Verified 06/19/24 14:15 Penicillins Allergy Unknown Verified 06/19/24 14:15 oxycodone Allergy Verified 06/19/24 14:15 Labs 09/20/24 04:20 09/20/24 04:20 Labs: Laboratory WBC 9.0 X10^3/uL (3.6-10.0) 09/20/24 04:20 RBC 3.83 X10^6/uL (4.7-6.0) L 09/20/24 04:20 Hgb 12.1 g/dL (13.5-18.0) L 09/20/24 04:20 Hct 35.9 % (42.0-54.0) L 09/20/24 04:20 MCV 93.6 fL (80.0-100.0) 09/20/24 04:20 MCH 31.5 pg (27.0-34.0) 09/20/24 04:20 MCHC 33.7 g/dL (33.0-35.0) 09/20/24 04:20 RDW 13.7 % (11.6-16.5) 09/20/24 04:20 Plt Count 171 X10^3/uL (150.0-450.0) 09/20/24 04:20 MPV 9.3 fL (7.4-11.0) 09/20/24 04:20 Neut % (Auto) 60.8 % (42.0-75.0) 09/20/24 04:20 Lymph % (Auto) 25.5 % (21.0-51.0) 09/20/24 04:20 [place] % (Auto) 11.8 % (0.0-13.0) 09/20/24 04:20 Eos % (Auto) 1.3 % (0.9-2.9) 09/20/24 04:20 Baso % (Auto) 0.6 % (0.2-1.0) 09/20/24 04:20 Neut # (Auto) 5.5 x10^3/uL (2.2-4.8) H 09/20/24 04:20 Lymph # (Auto) 2.3 X10^3/uL (1.3-2.9) 09/20/24 04:20 [place] # (Auto) 1.1 x10^3/uL (0.3-0.8) H 09/20/24 04:20 Eos # (Auto) 0.1 x10^3/uL (0.0-0.2) 09/20/24 04:20 Baso # (Auto) 0.1 X10^3/uL (0.0-0.1) 09/20/24 04:20 Absolute Nucleated RBC 0.2 /100WBC 09/20/24 04:20 PT 13.8 SECONDS (11.8-14.3) 09/19/24 13:22 INR Target Range - 09/19/24 13:22 INR 1.04 (0.8-1.3) 09/19/24 13:22 APTT 27.6 SECONDS (22.9-36.5) 09/19/24 13:22 PTT Comment - 09/19/24 13:22 Sodium 141 mmol/L (136-145) 09/20/24 04:20 Corrected Sodium 141 mmol/L (136-145) 09/20/24 04:20 Potassium 4.0 mmol/L (3.5-5.1) 09/20/24 04:20 Chloride 105 mmol/L (98-107) 09/20/24 04:20 Carbon Dioxide 29.7 mmol/L (21-32) 09/20/24 04:20 BUN 13 mg/dL (7-18) 09/20/24 04:20 Creatinine 0.64 mg/dL (0.70-1.30) L 09/20/24 04:20 Est GFR (MDRD) Af Amer > 60 (>60) 09/20/24 04:20 Est GFR (MDRD) Non-Af > 60 (>60) 09/20/24 04:20 Glucose 113 mg/dL (65-99) H 09/20/24 04:20 Calcium 8.4 mg/dL (8.5-10.1) L 09/20/24 04:20 Corrected Calcium 9.3 mg/dL (8.5-10.1) 09/20/24 04:20 Total Bilirubin 0.50 mg/dL (0.2-1.0) 09/20/24 04:20 AST 17 Units/L (15-37) 09/20/24 04:20 ALT 15 Units/L (12-78) 09/20/24 04:20 Alkaline Phosphatase 75 Units/L (46-116) 09/20/24 04:20 Creatine Kinase 27 Units/L (39-308) L 09/19/24 13:22 Troponin I High Sens 9.1 ng/L (4.0-60.0) 09/19/24 15:37 Total Protein 6.8 g/dL (6.4-8.2) 09/20/24 04:20 Albumin 2.9 g/dL (3.4-5.0) L 09/20/24 04:20 Globulin 3.9 g/dL (2.5-4.5) 09/20/24 04:20 Albumin/Globulin Ratio 0.7 Ratio (1.1-2.1) L 09/20/24 04:20 Digoxin < 0.20 ng/mL (0.9-2) L 09/20/24 04:20 Review of Systems Constitutional: Weakness; denies Fever Eyes: No Symptoms Reported ENT: No Symptoms Reported Respiratory: Cough and SOB with Excertion (mild, "nothing new") Cardiovascular: Palpitations Gastrointestinal: No Symptoms Reported Genitourinary: No Symptoms Reported Musculoskeletal: No Symptoms Reported Skin: No Symptoms Reported Neurological: Other (mild headache) Physical Exam Vital Signs: Vital Signs Temperature 98.0 F Pulse Rate 130 Pulse Rate 128 Pulse Rate 132 Pulse Rate 134 Pulse Rate 133 Pulse Rate 131 Pulse Rate 133 Pulse Rate 126 Pulse Rate 130 Pulse Rate 136 Pulse Rate 142 Pulse Rate 133 Pulse Rate 135 Pulse Rate 122 Pulse Rate 140 Pulse Rate 125 Pulse Rate 125 Pulse Rate 126 Pulse Rate 127 Pulse Rate 127 Pulse Rate 123 Pulse Rate 112 Pulse Rate 121 Pulse Rate 116 Pulse Rate 103 Pulse Rate 105 Pulse Rate 93 Pulse Rate 89 Pulse Rate 83 Pulse Rate 126 Pulse Rate 108 Respiratory Rate 26 Respiratory Rate 26 Respiratory Rate 42 Respiratory Rate 18 Respiratory Rate 18 Respiratory Rate 21 Respiratory Rate 32 Respiratory Rate 17 Respiratory Rate 19 Respiratory Rate 30 Respiratory Rate 21 Respiratory Rate 21 Respiratory Rate 23 Respiratory Rate 19 Respiratory Rate 23 Respiratory Rate 21 Respiratory Rate 35 Respiratory Rate 26 Respiratory Rate 23 Respiratory Rate 24 Respiratory Rate 30 Respiratory Rate 33 Respiratory Rate 22 Respiratory Rate 21 Respiratory Rate 23 Respiratory Rate 26 Respiratory Rate 33 Respiratory Rate 30 Respiratory Rate 27 Blood Pressure 114/73 Blood Pressure 110/71 Blood Pressure 94/67 Blood Pressure 83/60 Blood Pressure 112/73 Blood Pressure 107/66 Blood Pressure 97/62 Blood Pressure 97/62 Blood Pressure 89/59 Blood Pressure 89/59 Blood Pressure 85/54 Blood Pressure 85/54 Blood Pressure 89/59 O2 Sat by Pulse Oximetry 95 O2 Sat by Pulse Oximetry 96 O2 Sat by Pulse Oximetry 95 O2 Sat by Pulse Oximetry 95 O2 Sat by Pulse Oximetry 96 O2 Sat by Pulse Oximetry 98 O2 Sat by Pulse Oximetry 88 O2 Sat by Pulse Oximetry 96 O2 Sat by Pulse Oximetry 97 O2 Sat by Pulse Oximetry 96 O2 Sat by Pulse Oximetry 95 O2 Sat by Pulse Oximetry 94 O2 Sat by Pulse Oximetry 95 O2 Sat by Pulse Oximetry 98 O2 Sat by Pulse Oximetry 95 O2 Sat by Pulse Oximetry 95 O2 Sat by Pulse Oximetry 98 O2 Sat by Pulse Oximetry 98 O2 Sat by Pulse Oximetry 100 O2 Sat by Pulse Oximetry 96 O2 Sat by Pulse Oximetry 99 O2 Sat by Pulse Oximetry 98 O2 Sat by Pulse Oximetry 98 O2 Sat by Pulse Oximetry 99 O2 Sat by Pulse Oximetry 97 O2 Sat by Pulse Oximetry 98 O2 Sat by Pulse Oximetry 97 O2 Sat by Pulse Oximetry 100 O2 Sat by Pulse Oximetry 95 Oriented: Normal Eyes: Normal Ear: Normal Nose: Normal Throat: Dry Respiratory: RLL Diminished and LLL Diminished Cardiovascular: Tachycardia and Irregular Auscultation: Bowel Sounds: Normal Palpation: Normal Tenderness: Normal Skin: Normal Musculoskeletal: Normal Psychiatric: Normal Mood Description: Anxious Affect: Anxious Speech Pattern: Clear and Appropriate Assessment/Plan (1) Atrial fibrillation with rapid ventricular response: Status: Acute Plan: ADMIT ICU, CARDIZEM DRIP, CXR ON ADMISSION BP CONTROL, RATE CONTROL PRN SUPPLEMENTAL O2, VERIFY HOME MEDICATIONS RESUME ANTICOAGULANT THERAPY (2) COPD (chronic obstructive pulmonary disease): Status: Acute (3) CAD (coronary artery disease): Qualifiers: Associated angina: angina presence unspecified Coronary Disease- Associated Artery/Lesion type: [place] artery [place] vs. transplanted heart: n ative heart Qualified Code(s): I25.10 - Atherosclerotic heart disease of [place] coronary artery without angina pectoris Status: Acute
[2024-09-21 05:10] LABS: MEAN PLATELET VOLUME 8.9 fL (7.4-11.0); RED CELL DISTRIBUTION WIDTH 14.0 % (11.6-16.5)
[2024-09-21 05:24] LABS: COR CA(FOR HYPOALB) 9.3 mg/dL (8.5-10.1); CREATININE 0.62 mg/dL (0.70-1.30); eGFR NON BLACK RACES > 60 (>60)
[2024-09-21] MEDS ORDERED: LOPRESSOR INJ 5 MG AMP IVP PRN (13:33)
[2024-09-21] MEDS: NEXTERONE IV 150 MG PREMIX* 150 MG/100 ML BAG IV ONE (14:10)
[2024-09-21] MEDS: LANOXIN INJ IVP SCH ×2 (14:10→17:43)
[2024-09-21] MEDS: DRUG FILTER EXTENSION SET ONE (14:25)
[2024-09-21] MEDS: NEXTERONE IV 360 MG PREMIX* 360 MG/200 ML BAG IV ONE (15:01)
[2024-09-21] MEDS: NEXTERONE IV 360 MG PREMIX* 360 MG/200 ML BAG IV PRN (21:02)
[2024-09-22 05:12] LABS: MEAN PLATELET VOLUME 9.0 fL (7.4-11.0); RED CELL DISTRIBUTION WIDTH 13.8 % (11.6-16.5)
[2024-09-22 05:39] LABS: COR CA(FOR HYPOALB) 9.4 mg/dL (8.5-10.1); CREATININE 0.59 mg/dL (0.70-1.30); eGFR NON BLACK RACES > 60 (>60)
[2024-09-22] MEDS: CONSULT PHARMACY - POTASSIUM & MAGNESIUM XX SCH (07:29)
[2024-09-22] MEDS: MAG-OX TAB PO SCH (08:18)
[2024-09-22] MEDS ORDERED: PHARMACY CONSULT XX SCH (09:00)
[2024-09-22] MEDS: LOVENOX INJ 40 MG SYR SC SCH (09:31)
--- NOTE | 2024-09-22 16:39 | RAD ---
EXAM: CHEST, 1 VIEW HISTORY: chf, copd; COMPARISON: 09/19/2024 TECHNIQUE: AP portable FINDINGS: Median sternotomy wires and postsurgical changes from prior CABG. Stable cardiac silhouette. No focal consolidation, pleural effusion, or visible pneumothorax. IMPRESSION: No acute cardiopulmonary findings. THIS IS AN ELECTRONICALLY VERIFIED FINAL REPORT 09/22/2024 4:36 PM - Electronically signed by Jossue Sawant MD
[2024-09-22] MEDS ORDERED: CORDARONE TAB 200 MG ONE (21:07)
[2024-09-22] MEDS: CORDARONE TAB 200 MG PO SCH (21:13)
[2024-09-23 05:40] LABS: MEAN PLATELET VOLUME 9.2 fL (7.4-11.0); RED CELL DISTRIBUTION WIDTH 13.9 % (11.6-16.5)
[2024-09-23 06:15] LABS: CREATININE 0.64 mg/dL (0.70-1.30); eGFR NON BLACK RACES > 60 (>60)
[2024-09-23 06:16] LABS: COR CA(FOR HYPOALB) 9.4 mg/dL (8.5-10.1)
[2024-09-23] MEDS ORDERED: CONSULT PHARMACY - POTASSIUM & MAGNESIUM XX SCH (08:00)
[2024-09-23] MEDS: LANOXIN PO SCH (09:58)
[2024-09-23] MEDS: MAG-OX TAB PO SCH (09:58)
[2024-09-23] MEDS: K-DUR TAB 20 MEQ PO SCH (09:59)
[2024-09-23] MEDS: CORDARONE TAB 200 MG PO SCH (10:00)
[2024-09-24 05:37] LABS: MEAN PLATELET VOLUME 9.2 fL (7.4-11.0); RED CELL DISTRIBUTION WIDTH 13.5 % (11.6-16.5)
[2024-09-24 05:59] LABS: COR CA(FOR HYPOALB) 9.4 mg/dL (8.5-10.1); CREATININE 0.71 mg/dL (0.70-1.30); eGFR NON BLACK RACES > 60 (>60)
[2024-09-24 06:16] VITALS: PULSE 101; O2SAT 96
[2024-09-24] MEDS ORDERED: CONSULT PHARMACY - POTASSIUM & MAGNESIUM XX SCH (07:00)
[2024-09-24] MEDS: K-DUR TAB 20 MEQ PO SCH (08:12)
[2024-09-24] MEDS: ALPRAZOLAM ODT PO ONE (08:14)
[2024-09-24] MEDS: ATIVAN TAB 0.5 MG ONE (08:15)
[2024-09-24 08:32] VITALS: BP 110/73; RESP 19; TEMP 98.4
== END 2024-09-24 09:55 | disposition short-term general hospital (02) | DRG 309 ==
LOC: ICU 12:52 → ER 12:52 → OBSVTOIN 22:16 → ICU 22:39
PROVIDERS: ADMIT Internal Medicine; ATTEND Internal Medicine